=== PATIENT | male | born 1975 | race Caucasian/White ===

== ENCOUNTER 2017-09-26 20:13 | Emergency (ER) | payer SELFPAY ==
[2017-09-26] MEDS ORDERED: IBUPROFEN 600 MG TABLET ONE (20:26)
[2017-09-26] MEDS ORDERED: LIDOCAINE HCL-MPF 1% 2ML VIAL ONE (21:13)
[2017-09-26] MEDS ORDERED: CEFTRIAXONE SODIUM 1 GM ONE (21:14)
== END 2017-09-26 21:33 | disposition home or self-care (01) ==
LOC: EDH 20:13
DX: J20.9 Acute bronchitis, unspecified (principal); R50.81 Fever presenting with conditions classified elsewhere
CPT/HCPCS: 71045; 87804 ×2; 87880; 96372; 99285; J0696; J3490